=== PATIENT | female | born 1955 | race Caucasian/White ===

== ENCOUNTER 2017-04-09 18:59 | Emergency (ER) | payer MEDICARE, MEDICAID ==
[~2017-04-09] VITALS: Ht 170.2 cm; Wt 144.7 kg
[~2017-04-09 18:59] MED LIST: ACHD5005 PO; ACHYD1T PO; ALBU17AE23 IH; ASP325T NG; ASP325T PO; ASP81TEC PO; CALC-671 PO; CETI10CA PO; CLD600T PO; CLIN300C3 PO; DULO60CA6 PO; ENXP30I.3 SC; ERGO400C PO; HYDR-2890 PO; IBUP-1773 PO; LIRA0.6P SQ; LNS30CCR PO; LORA1TAB PO; METF-380 PO; METH4TAB PO; METO50TA7 PO; MULT-142 PO; OXYC-188 PO; PRAV20TA PO; PRM25T PO; PRV20T PO; SERT50TA PO; SERT50TA2 PO; SULF1TAB35 PO; TOLT4CAP PO; TOLTA4 PO; TOPI100T2 PO; TRAM50TA2 PO; lovenox
[2017-04-09] MEDS ORDERED: ONDANSETRON 4 MG/2 ML (SDV) Z0FRAN IVP PRN (19:45)
[2017-04-09] MEDS ORDERED: LEVOFLOXACIN 750 MG/150 ML IV 150 ML IV ONE (19:45)
[2017-04-09] MEDS ORDERED: RT-ALBUTEROL/IPRATROPIUM 3 ML (DUONEB) VIAL INH ONE (19:45)
[2017-04-09] MEDS ORDERED: ACETAMINOPHEN 500 MG TAB (TYLENOL) PO PRN (19:45)
[2017-04-09] MEDS ORDERED: NS IV PRN (19:45)
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
[2017-04-09 19:54] LABS: BASOPHILS % (AUTO) 0 % (0-10); EOSINOPHILS % (AUTO) 0 % (0-10); HEMATOCRIT 34 % (35-52); HEMOGLOBIN 10.8 G/DL (11.5-16.0); LYMPHOCYTES # (AUTO) 0.6 X 10^3 (1.0-4.0); LYMPHOCYTES % (AUTO) 5 % (12-44); MEAN CORPUSCULAR HEMOGLOBIN 28 PG (25-34); MEAN CORPUSCULAR HGB CONC 32 G/DL (32-36); MEAN CORPUSCULAR VOLUME 88 FL (80-99); MEAN PLATELET VOLUME 10.6 FL (7.4-10.4); MONOCYTES % (AUTO) 8 % (0-12); NEUTROPHILS # (AUTO) 10.1 X 10^3 (1.8-7.8); NEUTROPHILS % (AUTO) 86 % (42-75); PLATELET COUNT 273 10^3/uL (130-400); RED BLOOD COUNT 3.86 10^6/uL (4.35-5.85); RED CELL DISTRIBUTION WIDTH 13.9 % (10.0-14.5); WHITE BLOOD COUNT 11.7 10^3/uL (4.3-11.0)
[2017-04-09 20:00] LABS: INR 1.1 (0.8-1.4); PROTHROMBIN TIME PATIENT 14.4 SEC (12.2-14.7)
[2017-04-09 20:08] LABS: ALBUMIN 3.2 GM/DL (3.2-4.5); BILIRUBIN,TOTAL 0.3 MG/DL (0.1-1.0); CALCIUM 9.6 MG/DL (8.5-10.1); CREATININE SERUM 5.19 MG/DL (0.60-1.30); POTASSIUM 4.4 MMOL/L (3.6-5.0); TOTAL PROTEIN 7.5 GM/DL (6.4-8.2)
[2017-04-09 20:13] LABS: BAND NEUTROPHILS 14 %; BASOPHILS % (MANUAL) 1 %; EOSINOPHILS % (MANUAL) 0 %; LYMPHOCYTES % (MANUAL) 5 %; MONOCYTES % (MANUAL) 8 %; NEUTROPHILS % (MANUAL) 72 %
[2017-04-09 20:14] LABS: RBC MORPH NORMAL
--- NOTE | 2017-04-09 20:33 | Diagnostic Imaging Report ---
INDICATION: Abdominal pain and fever. COMPARISON: Chest radiograph of 12/04/2013. FINDINGS: Examination is mildly limited due to patient's large body habitus and portable technique. Allowing for this, the visible lungs are clear. Posterior lower lobes are suboptimally evaluated by portable technique. Heart is borderline enlarged which can be accentuated by portable technique. Normal pulmonary vasculature. No pneumothorax. No pleural effusion. IMPRESSION: Mildly limited examination as detailed above. Allowing for this, no acute cardiopulmonary process by portable radiography. Dictated by: Dictated on workstation # [id number]
[2017-04-09 20:38] VITALS: BP 109/68
[2017-04-09 20:47] LABS: BILIRUBIN,URINE NEGATIVE (NEGATIVE); CLARITY,URINE VERY CLOUDY; COLOR,URINE YELLOW; GLUCOSE, URINE (UA) NEGATIVE (NEGATIVE); KETONES,URINE NEGATIVE (NEGATIVE); LEUKOCYTE ESTERASE ,URINE 3+ (NEGATIVE); NITRITE,URINE NEGATIVE (NEGATIVE); PH,URINE 5 (5-9); PROTEIN,URINE 3+ (NEGATIVE); UROBILINOGEN,URINE NORMAL (NORMAL)
[2017-04-09 20:54] LABS: BACTERIA,URINE LARGE /HPF; WBC,URINE TNTC /HPF
[2017-04-09] MEDS ORDERED: morphine INJ 10 MG/ML 1ML (SYR OR VIAL) IVP STA (21:02)
[2017-04-09] MEDS ORDERED: cefTRIAXone INJECTION 1,000 MG in D5W 50 ML IVPB SOLUTION 50 ML IV ONE (21:15)
[2017-04-09 21:20] VITALS: BP 105/60
[2017-04-09] MEDS ORDERED: NS IV 1000 ML 1,000 ML IV STA (21:22)
[2017-04-09] MEDS ORDERED: NS IV 1000 ML 1,000 ML IV ONE ×3 (21:22→23:51)
--- NOTE | 2017-04-09 21:23 | Diagnostic Imaging Report ---
PROCEDURE: CT abdomen and pelvis without contrast. TECHNIQUE: Multiple contiguous axial images were obtained through the abdomen and pelvis without the use of intravenous contrast. INDICATION: Nausea and vomiting. COMPARISON: CT abdomen from 07/10/2016. FINDINGS: Evaluation of the abdominal viscera is mildly limited without contrast. Lower chest: The lung bases are clear. No pericardial or pleural effusion. Peritoneum: No free intraperitoneal air or fluid. Liver and biliary system: Diffuse hypoattenuation of the liver suggests hepatic steatosis. No focal liver lesion by noncontrast imaging. Cholecystectomy. No biliary duct dilatation. Spleen and Pancreas: Spleen is normal. Unenhanced pancreas is grossly normal. Adrenals: Normal. tract: There is mild asymmetric enlargement of left kidney with mild calyceal dilatation and perinephric stranding. There is also mild induration along the left ureter. However, there are no renal or ureteral calculi present on either side. The urinary bladder is decompressed. Uterus and ovaries are normal in appearance for patient's age. GI tract: Stomach is distended with fluid and food debris and there is no wall thickening. No bowel obstruction. No pericolonic inflammatory changes. Descending and sigmoid colon diverticulosis without diverticulitis. Appendix is normal. Vasculature and Lymph nodes: Normal caliber aorta. No abdominal or pelvic lymphadenopathy. Musculoskeletal: No concerning osseous lesion. IMPRESSION: 1. Mild enlargement of the left kidney with perinephric stranding and mild calyceal dilatation. There are no obstructing renal or ureteral stones present. These findings are suggestive of either recent stone passage versus infection. Correlation with urinalysis is recommended. 2. Mild diffuse hepatic steatosis. Dictated by: Dictated on workstation # [id number]
[2017-04-09] MEDS ORDERED: NOREPINEPHRINE 4 MG/4 ML (LEVOPHED) AMP IV ONE (23:33)
[2017-04-09] MEDS ORDERED: NS (IVPB) 250 ML ONE (23:33)
[2017-04-10 00:10] VITALS: BP 103/63
--- NOTE | 2017-04-10 08:05 | Diagnostic Imaging Report ---
INDICATION: Central venous catheter evaluation 2337 hours Comparison is made to study of 04/09/2017. Heart size is at the upper limits of normal. Pulmonary vascularity is unremarkable. There is no pneumothorax or consolidation. Right jugular central venous catheter is in place with tip projecting over the upper superior vena cava. IMPRESSION: No evidence of acute abnormality or adverse change. Dictated by: Dictated on workstation # [id number]
== END 2017-04-10 00:10 | disposition short-term general hospital (02) ==
LOC: EDUNIT# 18:59 → ER 19:01
DX: A41.9 Sepsis, unspecified organism (principal); R65.21 Severe sepsis with septic shock; F41.9 Anxiety disorder, unspecified; N12 Tubulo-interstitial nephritis, not specified as acute or chronic; J45.909 Unspecified asthma, uncomplicated; E11.9 Type 2 diabetes mellitus without complications; Z96.653 Presence of artificial knee joint, bilateral; Z90.49 Acquired absence of other specified parts of digestive tract; Z87.828 Personal history of other (healed) physical injury and trauma; Z87.51 Personal history of pre-term labor; Z98.51 Tubal ligation status; Z79.01 Long term (current) use of anticoagulants; Z79.82 Long term (current) use of aspirin; Z79.84 Long term (current) use of oral hypoglycemic drugs
CPT/HCPCS: 36415; 51702; 71045; 74176; 80053; 81000; 82962; 83605; 85007; 85027; 85610; 85730; 87040; 87088; 87186; 87804; 94640; 96361; 96365; 96367; 96375

== ENCOUNTER → 2018-08-19 | Outpatient (CLI) | payer MEDICARE, MEDICAID ==
--- NOTE | 2018-08-19 21:21 | Diagnostic Imaging Report ---
INDICATION: Routine screening. Comparison is made with prior mammogram from 03/16/2009. 2-D and 3-D bilateral screening mammography was performed with a Computer Aided Detection (CAD) system. FINDINGS: Scattered fibroglandular densities are identified bilaterally. There are benign calcifications scattered throughout both breasts. No mass or malignant-appearing microcalcifications are seen. Axillae are unremarkable. IMPRESSION: No mammographic features suspicious for malignancy are identified. ACR BI-RADS Category 2: Benign findings. Result letter will be mailed to the patient. Note: At least 10% of breast cancer is not imaged by mammography. Dictated on workstation # [id number]
== END ==
LOC: RAD 07:53
PROVIDERS: ATTEND Nurse Practitioner Community Health
DX: Z12.31 Encounter for screening mammogram for malignant neoplasm of breast (principal)
CPT/HCPCS: 77067

== ENCOUNTER → 2019-10-14 | Outpatient (CLI) | payer MEDICARE, MEDICAID ==
--- NOTE | 2019-10-14 21:14 | Diagnostic Imaging Report ---
EXAM: Digital mammogram, bilateral screening COMPARISON is made to prior exam of 08/19/2018. There are no current complaints. The current study was also evaluated with a Computer Aided Detection (CAD) system. FINDINGS: There are scattered fibroglandular densities in both breasts which could obscure a lesion. Overall, there does not appear to have been any significant change when compared to the prior exam. No primary or secondary sign of malignancy is noted. IMPRESSION: There is no radiographic evidence for malignancy. ACR category 1. ACR BI-RADS Category 1: Negative. Result letter will be mailed to the patient. Note: At least 10% of breast cancer is not imaged by mammography. Dictated by: Dictated on workstation # [id number]
== END ==
LOC: RAD 12:45
PROVIDERS: ATTEND Nurse Practitioner Community Health
DX: Z12.31 Encounter for screening mammogram for malignant neoplasm of breast (principal); M81.0 Age-related osteoporosis without current pathological fracture; N95.1 Menopausal and female climacteric states
CPT/HCPCS: 77063; 77067

== ENCOUNTER 2019-12-29 20:13 | Outpatient (CLI) | payer MEDICARE, MEDICAID | END 2019-12-30 06:25 | disposition home or self-care (01) | LOC: SLEEP 20:13 | PROVIDERS: ATTEND Nurse Practitioner Family | DX: G47.10 Hypersomnia, unspecified (principal); G47.61 Periodic limb movement disorder; I10 Essential (primary) hypertension; E66.01 Morbid (severe) obesity due to excess calories | CPT/HCPCS: 95811 ==

== ENCOUNTER → 2020-02-10 | Outpatient (CLI) | payer MEDICARE, MEDICAID ==
[~2020-02-10] MED LIST changes: +CATHETER FLUSH 10 ML SYR IV PRN; +HOLD METFORMIN - RECEIVED CONTRAST 20 ML VIAL IV SCH; +IOHEXOL 350 MG/ML 100 ML (OMNIPAQUE 350) VIAL IV ONE; +NS 100 ML (IVPB) BAG IV ONE
[2020-02-10 11:24] LABS: ALBUMIN 3.5 GM/DL (3.2-4.5); POTASSIUM 4.5 MMOL/L (3.6-5.0)
[2020-02-10 11:25] LABS: CALCIUM 8.7 MG/DL (8.5-10.1)
[2020-02-10 11:27] LABS: TOTAL PROTEIN 7.4 GM/DL (6.4-8.2)
[2020-02-10 11:28] LABS: BILIRUBIN,TOTAL 0.4 MG/DL (0.1-1.0)
[2020-02-10 11:30] LABS: CREATININE SERUM 1.33 MG/DL (0.60-1.30)
--- NOTE | 2020-02-10 12:41 | Diagnostic Imaging Report ---
PROCEDURE: CT angiography of the chest with contrast. TECHNIQUE: Multiple contiguous axial images were obtained through the chest after uneventful bolus administration of intravenous contrast. 3D reconstructed CTA MIP acquisitions were also performed. Auto Exposure Controls were utilized during the CT exam to meet ALARA standards for radiation dose reduction. INDICATION: Shortness of air FINDINGS: There are no identifiable intraluminal pulmonary arterial filling defects. There were no findings of pulmonary arterial embolus however we acknowledge limited luminal technical opacification at the subsegmental level and beyond. No findings of right heart strain. No evidence for pulmonary hemorrhage or lung infarct. This patient does have a few areas of predominantly upper lobe groundglass pulmonary density which may reflect a viral infection in the appropriate scenario. No alveolar consolidation or bronchograms. No effusion or pneumothorax. Thoracic aorta patent and nonaneurysmal. Upper abdomen appeared nonacute. IMPRESSION: No demonstrated PE or acute aortic disease. Mild upper lobe nonspecific groundglass pulmonary densities. Dictated by: Dictated on workstation # [id number]
== END ==
LOC: RAD 09:24
PROVIDERS: ATTEND Nurse Practitioner Family
DX: J98.4 Other disorders of lung (principal); R06.02 Shortness of breath; R09.02 Hypoxemia
CPT/HCPCS: 36415; 71275; 80053

== ENCOUNTER → 2020-02-10 | Outpatient (CLI) | payer MEDICARE, MEDICAID ==
[~2020-02-10] MED LIST changes: -CATHETER FLUSH 10 ML SYR IV PRN; -HOLD METFORMIN - RECEIVED CONTRAST 20 ML VIAL IV SCH; -IOHEXOL 350 MG/ML 100 ML (OMNIPAQUE 350) VIAL IV ONE; -NS 100 ML (IVPB) BAG IV ONE; +RT-ALBUTEROL SULF 2.5 MG/3 ML PRE-MIX VIAL INH ONE
== END ==
LOC: RT 09:23
PROVIDERS: ATTEND Nurse Practitioner Community Health
DX: R94.2 Abnormal results of pulmonary function studies (principal)
CPT/HCPCS: 94060; 94726; 94729

== ENCOUNTER → 2020-02-17 | Outpatient (CLI) | payer MEDICARE, MEDICAID ==
[~2020-02-17] MED LIST changes: -RT-ALBUTEROL SULF 2.5 MG/3 ML PRE-MIX VIAL INH ONE
--- NOTE | 2020-02-17 17:19 | Diagnostic Imaging Report ---
PROCEDURE: US Renal Bilateral. TECHNIQUE: Multiple real-time grayscale images were obtained over the kidneys in various projections bilaterally. INDICATION: Chronic kidney disease and hypertension. FINDINGS: Examination is technically challenging given poor tissue penetration related to large body habitus. The right kidney appears to measure 11.3 cm in length and left 10.4 cm in length. There are no sonographic findings of hydronephrosis. There is no evidence of a shadowing calculus or solid renal mass. There is a probable small anechoic cyst at the inferior pole of the left kidney. Urinary bladder is nondistended. The right ureteral jet is evident. The left was not seen. IMPRESSION: Technically limited examination due to poor acoustic through-transmission secondary to large body habitus. There are no findings by ultrasound to suggest hydronephrosis or renal obstruction. There is no solid renal mass or evidence of a shadowing calculus. The left ureteral jet could not be identified. Dictated by: Dictated on workstation # [id number]
== END ==
LOC: RAD 12:45
PROVIDERS: ATTEND Internal Medicine Nephrology
DX: I12.9 Hypertensive chronic kidney disease with stage 1 through stage 4 chronic kidney disease, or unspecified chronic kidney disease (principal); N18.30 Chronic kidney disease, stage 3 unspecified; Z96.0 Presence of urogenital implants
CPT/HCPCS: 76770

== ENCOUNTER 2020-03-05 18:59 | Outpatient (CLI) | payer MEDICARE, MEDICAID | END 2020-03-06 06:41 | disposition home or self-care (01) | LOC: SLEEP 18:59 | PROVIDERS: ATTEND Nurse Practitioner Family | DX: G47.33 Obstructive sleep apnea (adult) (pediatric) (principal); R09.02 Hypoxemia | CPT/HCPCS: 95811 ==

== ENCOUNTER → 2020-03-30 | Outpatient (CLI) | payer MEDICARE, MEDICAID ==
[~2020-03-30] VITALS: Ht 172 cm; Wt 182.0 kg
[~2020-03-30] MED LIST changes: +CATHETER FLUSH 10 ML SYR IV PRN; +REGADENOSON 0.4 MG/5 ML SYR (LEXISCAN) IV ONE
[2020-03-30 12:53] VITALS: BP 116/63
== END ==
LOC: CARD 11:30
PROVIDERS: ATTEND Internal Medicine Cardiovascular Disease
DX: I35.0 Nonrheumatic aortic (valve) stenosis (principal); I35.8 Other nonrheumatic aortic valve disorders; I51.7 Cardiomegaly
CPT/HCPCS: 78452; 93017; 93225; 93226; 93306; A9502

== ENCOUNTER → 2020-05-17 | Outpatient (CLI) | payer MEDICARE, MEDICAID ==
[~2020-05-17] MED LIST changes: -CATHETER FLUSH 10 ML SYR IV PRN; -REGADENOSON 0.4 MG/5 ML SYR (LEXISCAN) IV ONE
[2020-05-17 16:06] LABS: BASOPHILS % (AUTO) 0 % (0-10); EOSINOPHILS # (AUTO) 0.2 10^3/uL (0.0-0.3); EOSINOPHILS % (AUTO) 3 % (0-10); HEMATOCRIT 38 % (35-52); HEMOGLOBIN 10.4 g/dL (11.5-16.0); LYMPHOCYTES # (AUTO) 1.9 10^3/uL (1.0-4.0); LYMPHOCYTES % (AUTO) 22 % (12-44); MEAN CORPUSCULAR HEMOGLOBIN 25 pg (25-34); MEAN CORPUSCULAR HGB CONC 28 g/dL (32-36); MEAN CORPUSCULAR VOLUME 89 fL (80-99); MEAN PLATELET VOLUME 9.4 fL (9.0-12.2); MONOCYTES # (AUTO) 0.6 10^3/uL (0.0-1.0); MONOCYTES % (AUTO) 7 % (0-12); NEUTROPHILS # (AUTO) 5.6 10^3/uL (1.8-7.8); NEUTROPHILS % (AUTO) 67 % (42-75); PLATELET COUNT 276 10^3/uL (130-400); WHITE BLOOD COUNT 8.3 10^3/uL (4.3-11.0)
[2020-05-17 16:25] LABS: LYMPHOCYTES % (MANUAL) 29 %; NEUTROPHILS % (MANUAL) 56 %
[2020-05-17 16:26] LABS: EOSINOPHILS % (MANUAL) 7 %; MONOCYTES % (MANUAL) 8 %; RBC MORPH NORMAL
[2020-05-17 16:31] LABS: ALBUMIN 3.7 GM/DL (3.2-4.5); POTASSIUM 3.9 MMOL/L (3.6-5.0)
[2020-05-17 16:32] LABS: CALCIUM 9.1 MG/DL (8.5-10.1)
[2020-05-17 16:37] LABS: PHOSPHORUS 2.7 MG/DL (2.3-4.7)
[2020-05-17 16:40] LABS: URIC ACID 4.8 MG/DL (2.6-7.2)
== END ==
LOC: LAB 15:38
PROVIDERS: ATTEND Internal Medicine Nephrology
DX: I12.9 Hypertensive chronic kidney disease with stage 1 through stage 4 chronic kidney disease, or unspecified chronic kidney disease (principal); N18.30 Chronic kidney disease, stage 3 unspecified; Z79.1 Long term (current) use of non-steroidal anti-inflammatories (NSAID)
CPT/HCPCS: 36415; 80069; 82306; 82570; 83970; 84156; 84550; 85007; 85027

== ENCOUNTER → 2020-10-19 | Outpatient (CLI) | payer MEDICARE, MEDICAID ==
--- NOTE | 2020-10-19 13:51 | Diagnostic Imaging Report ---
INDICATION: Routine screening. COMPARISON: 10/14/2019 and 08/19/2018. TECHNIQUE: 2D and 3D bilateral screening mammography was performed with CAD. FINDINGS: Scattered fibroglandular densities are identified bilaterally. The parenchymal pattern is stable. There are scattered benign calcifications in both breasts. No mass or malignant-appearing microcalcifications are identified. The axillae are unremarkable. IMPRESSION: No mammographic features suspicious for malignancy are identified. ACR BI-RADS Category 2: Benign findings. Result letter will be mailed to the patient. Note: At least 10% of breast cancer is not imaged by mammography. Dictated by: Dictated on workstation # [id number]
== END ==
LOC: RAD 09:15
PROVIDERS: ATTEND Nurse Practitioner Family
DX: Z12.31 Encounter for screening mammogram for malignant neoplasm of breast (principal)
CPT/HCPCS: 77063; 77067

== ENCOUNTER → 2021-07-27 | Outpatient (CLI) | payer MEDICARE, MEDICAID ==
[~2021-07-27] VITALS: Ht 172.7 cm; Wt 168.2 kg
[~2021-07-27] MED LIST changes: +AMIO200T65 PO; +BUPR150T24 PO; +DICL50TA6 PO; +DULA0.75 SQ; +GABA300C PO; +LEVO75CA5 PO; +LISI5TAB20 PO; +PANT40TA52 PO; +PRAV20TA3 PO; +TOLT4CAP26 PO; +VITA80009 PO
== END | disposition home or self-care (01) ==
LOC: PREOP 05:37
PROVIDERS: ATTEND Specialist
DX: Z01.818 Encounter for other preprocedural examination (principal)

== ENCOUNTER 2021-08-01 11:57 | Day surgery (SDC) | payer MEDICARE, MEDICAID ==
[~2021-08-01] VITALS: Ht 172 cm; Wt 168.2 kg
[2021-08-01] MEDS ORDERED: MIDAZOLAM 2 MG/2 ML (VERSED) VIAL ONE (12:09)
[2021-08-01] MEDS: TETRACAINE 0.5% OPHTH SOLN 4 ML BTL (SINGLE DOSE ONLY) OU PRN ×4 (12:25→12:45)
[2021-08-01] MEDS ORDERED: TIMOLOL MALEATE 0.5% 5 ML (TIMOPTIC) BTL OU PRN (12:30)
[2021-08-01] MEDS ORDERED: POVIDONE (BETADINE) OPHTH SOLN 5% 30 ML OP ONE (12:30)
[2021-08-01] MEDS ORDERED: MOXIFLOXACIN OPHTH SOLN 5 MG/ML 0.3 ML SYRINGE OP ONE (12:30)
[2021-08-01] MEDS ORDERED: LIDOCAINE PF 1% 2 ML VIAL IR PRN (12:30)
[2021-08-01 12:31] VITALS: BP 113/49
[2021-08-01] MEDS: TROPICAMIDE 1% OPH SOLN (MYDRIACYL) 15 ML BTL OP SCH ×3 (12:35→12:45)
[2021-08-01] MEDS: PHENYLEPHRINE 10% OPHTH (NEO-SYN) 5 ML BTL OU SCH ×3 (12:35→12:45)
--- NOTE | 2021-08-01 13:06 | Ophthalmologist Pre-Op Note ---
Pre-Operative Progress Note H&P Reviewed The H&P was reviewed, patient examined and no changes noted. Date H&P Reviewed: August 01, 2021 Time H&P Reviewed: 13:06 Pre-Op Dx Cataract, Right Eye SRIKANTH COFFMAN MD August 01, 2021 13:06
--- NOTE | 2021-08-01 13:31 | Ophthalmologist Pre-Op Note ---
Pre-Operative Progress Note H&P Reviewed The H&P was reviewed, patient examined and no changes noted. Date H&P Reviewed: August 01, 2021 Time H&P Reviewed: 10:10 Pre-Op Dx Cataract, Right Eye SRIKANTH COFFMAN MD August 01, 2021 13:31
--- NOTE | 2021-08-01 13:32 | Ophthalmology Operative Report ---
Cataract removal/placement IOL PREOPERATIVE DIAGNOSIS: Cataract Right Eye POSTOPERATIVE DIAGNOSIS: Cataract Right Eye PROCEDURE: Cataract removal and placement of posterior chamber implant, right eye SURGEON: Zhao Coffman ANESTHESIA: Topical with sedation COMPLICATIONS: None ESTIMATED BLOOD LOSS: Minimal DESCRIPTION OF PROCEDURE: After proper informed consent was obtained, the patient, a 65 female, was taken to the Operating Room and the right eye was anesthetized with tetracaine. The right eye was then prepped and draped in the usual manner. A wire lid speculum was placed. A paracentesis was made at the left hand position. Preservative free lidocaine was injected into the anterior chamber followed by viscoelastic. A clear corneal incision was made in the temporal position. A capsulorrhexis was preformed and the central nuclear and cortical material were removed. The posterior capsule was polished and Tera 21.5 AU00T0 IOL was placed into the capsular bag. The residual viscoelastic was aspirated and balanced saline solution was injected into the anterior chamber. Moxifloxacin was injected into the anterior chamber. The wound was checked and found to be water tight. The patient tolerated the procedure well without complications. ZHAO COFFMAN MD August 01, 2021 13:32
[2021-08-01 13:37] VITALS: BP 105/44
--- NOTE | 2021-08-01 13:46 | Anesthesia-General Post-Op ---
MAC Patient Condition Mental Status/LOC: Same as Preop Cardiovascular: Satisfactory Nausea/Vomiting: Absent Respiratory: Satisfactory Pain: Controlled Complications: Absent Post Op Complications Complications None Follow Up Care/Instructions Patient Instructions None needed. Anesthesiology Discharge Order Discharge Order Patient is doing well, no complaints, stable vital signs, no apparent adverse anesthesia problems. No complications reported per nursing. LUDWIN GONZALEZ CRNA August 01, 2021 13:46
[2021-08-01] MEDS ORDERED: acetaZOLAMIDE ER 500 MG CAP (DIAMOX SEQUELS) PO ONE (14:30)
== END 2021-08-01 13:38 | disposition home or self-care (01) ==
LOC: SDC 11:57
PROVIDERS: ATTEND Specialist
DX: E11.36 Type 2 diabetes mellitus with diabetic cataract (principal); H25.9 Unspecified age-related cataract; E11.40 Type 2 diabetes mellitus with diabetic neuropathy, unspecified; E66.01 Morbid (severe) obesity due to excess calories; Z68.43 Body mass index [BMI] 50.0-59.9, adult; Z79.899 Other long term (current) drug therapy
CPT/HCPCS: 66984; 82947; V2632

== ENCOUNTER 2021-08-05 12:14 | Day surgery (SDC) | payer MEDICARE, MEDICAID ==
[~2021-08-05] VITALS: Ht 172.7 cm; Wt 168.2 kg
[2021-08-05] MEDS ORDERED: LIDOCAINE PF 1% 2 ML VIAL IR PRN (12:15)
[2021-08-05] MEDS ORDERED: POVIDONE (BETADINE) OPHTH SOLN 5% 30 ML OP ONE (12:15)
[2021-08-05] MEDS ORDERED: TIMOLOL MALEATE 0.5% 5 ML (TIMOPTIC) BTL OU PRN (12:15)
[2021-08-05] MEDS ORDERED: MOXIFLOXACIN OPHTH SOLN 5 MG/ML 0.3 ML SYRINGE OP ONE (12:15)
[2021-08-05] MEDS: TETRACAINE 0.5% OPHTH SOLN 4 ML BTL (SINGLE DOSE ONLY) OU PRN ×4 (12:20→12:37)
[2021-08-05] MEDS: TROPICAMIDE 1% OPH SOLN (MYDRIACYL) 15 ML BTL OP SCH ×3 (12:26→12:37)
[2021-08-05] MEDS: PHENYLEPHRINE 10% OPHTH (NEO-SYN) 5 ML BTL OU SCH ×3 (12:26→12:37)
[2021-08-05 12:30] VITALS: BP 99/49
--- NOTE | 2021-08-05 13:10 | Ophthalmologist Pre-Op Note ---
Pre-Operative Progress Note H&P Reviewed The H&P was reviewed, patient examined and no changes noted. Date H&P Reviewed: August 05, 2021 Time H&P Reviewed: 13:09 Pre-Op Dx Cataract, Left Eye SRIKANTH COFFMAN MD August 05, 2021 13:10
[2021-08-05] MEDS ORDERED: MIDAZOLAM 2 MG/2 ML (VERSED) VIAL ONE (13:12)
--- NOTE | 2021-08-05 13:32 | Ophthalmology Operative Report ---
Cataract removal/placement IOL PREOPERATIVE DIAGNOSIS: Cataract Left Eye POSTOPERATIVE DIAGNOSIS: Cataract Left Eye PROCEDURE: Cataract removal and placement of posterior chamber implant, left eye SURGEON: Zhao Coffman ANESTHESIA: Topical with sedation COMPLICATIONS: None ESTIMATED BLOOD LOSS: Minimal DESCRIPTION OF PROCEDURE: After proper informed consent was obtained, the patient, a 65 female, was taken to the Operating Room and the left eye was anesthetized with tetracaine. The left eye was then prepped and draped in the usual manner. A wire lid speculum was placed. A paracentesis was made at the left hand position. Preservative free lidocaine was injected into the anterior chamber followed by viscoelastic. A clear corneal incision was made in the temporal position. A capsulorrhexis was preformed and the central nuclear and cortical material were removed. The posterior capsule was polished and an Alcon21.5 AU00T0 was placed into the capsular bag. The residual viscoelastic was aspirated and balanced saline solution was injected into the anterior chamber. Moxifloxacin was injected into the anterior chamber. The wound was checked and found to be water tight. The patient tolerated the procedure well without complications. ZHAO COFFMAN MD August 05, 2021 13:32
[2021-08-05 13:39] VITALS: BP 93/57
--- NOTE | 2021-08-05 13:56 | Anesthesia-General Post-Op ---
MAC Patient Condition Mental Status/LOC: Same as Preop Cardiovascular: Satisfactory Nausea/Vomiting: Absent Respiratory: Satisfactory Pain: Controlled Complications: Absent Post Op Complications Complications None Follow Up Care/Instructions Patient Instructions None needed. Anesthesiology Discharge Order Discharge Order Patient is doing well, no complaints, stable vital signs, no apparent adverse anesthesia problems. No complications reported per nursing. BENJAMIN EMERSON CRNA August 05, 2021 13:56
[2021-08-05] MEDS ORDERED: acetaZOLAMIDE ER 500 MG CAP (DIAMOX SEQUELS) PO ONE (14:15)
== END 2021-08-05 13:40 | disposition home or self-care (01) ==
LOC: SDC 12:14
PROVIDERS: ATTEND Specialist
DX: E11.36 Type 2 diabetes mellitus with diabetic cataract (principal); H25.9 Unspecified age-related cataract; E11.40 Type 2 diabetes mellitus with diabetic neuropathy, unspecified; E66.01 Morbid (severe) obesity due to excess calories; Z68.43 Body mass index [BMI] 50.0-59.9, adult; Z79.899 Other long term (current) drug therapy
CPT/HCPCS: 66984; 82947; V2632